=== PATIENT | female | born 1955 | race Caucasian/White ===

== ENCOUNTER 2021-02-02 22:10 | Observation (INO) ==
[2021-02-02] MEDS ORDERED: morphine 4 MG/ML VIAL IV ONE (22:14)
[2021-02-03] MEDS ORDERED: PROPOFOL 200 MG/20 ML VIAL IV ONE ×2 (00:04→13:11)
[2021-02-03] MEDS ORDERED: HYDROmorphone 0.5 MG/0.5 ML SYRINGE IV ONE (00:04)
--- NOTE | 2021-02-03 00:08 | Emergency Department Note ---
HPI General Chief complaint: Extremity Injury, Lower Stated complaint: hip dislocation Time Seen by Provider: 02/02/21 22:16 Source: family and EMS Mode of arrival: EMS Limitations: no limitations History of Present Illness HPI Narrative: Narrative: Patient is a 65-year-old lady who arrives emergency department by ambulance accompanied by her complaining of a left hip dislocation. History of bladder by the patient reviewing medical records and discussion with the physician at the transferring facility. The patient was sitting down this evening when she had sudden onset pain in her left hip and felt a palpable deformity in her hip consistent with prior hip dislocations. She presented to another emergency department. The provider at that location recognize that she did have a hip dislocation but was uncomfortable attempting reduction. He then transferred her to our facility for further evaluation. The patient has had similar problems many times since having her hip replaced in October. She did not suffer any other injuries following the incident. Related Data Home Medications Medication Instructions Recorded Confirmed lisinopril 20 mg PO DAILY 01/12/16 11/02/20 lamotrigine 100 mg PO BID 01/22/18 11/02/20 sumatriptan succinate [Imitrex] 25 mg PO PRN PRN 01/22/18 11/02/20 venlafaxine 75 mg PO DAILY 01/22/18 11/02/20 quetiapine [Seroquel] 200 mg PO HS 01/24/18 11/02/20 clonazepam 0.5 mg PO PRN PRN 10/26/20 11/02/20 gabapentin 900 mg PO TID 10/26/20 11/02/20 Previous Rx's Medication Instructions Recorded hydrocodone-acetaminophen 1 - 2 tab PO Q4-6HP PRN #42 tab 01/24/18 ondansetron 4 mg SL Q4-6HP PRN #14 tab 08/20/18 aspirin 81 mg PO BID #60 tab 11/03/20 meloxicam 7.5 mg PO QD-BID #60 tab 11/03/20 oxycodone 5 mg PO Q4H PRN #60 tab 11/03/20 Allergies Allergy/AdvReac Type Severity Reaction Status Date / Time pregabalin [From Lyrica] Allergy Severe lost blood Verified 10/26/20 13:18 pressure vortioxetine Allergy Intermediate Hives Verified 10/26/20 13:18 [From Brintellix] Review of Systems ROS ROS Narrative: Narrative: All systems ED: reviewed and negative except as stated. Constitutional: Denies fever and chills Cardiovascular: Denies chest pain Respiratory: Denies cough PFSH Narrative Patient History Narrative: Narrative: Medical/Surgical/Family History All Active Problems (Updated 02/03/21 @ 02:21 by Charlie Henson DO) Closed posterior dislocation of left hip (Acute) History of surgery (Acute) History of seizures (Acute) Hypertension (Acute) Depression (Acute) Anxiety disorder (Acute) Chronic pain (Acute) Chronic, continuous use of opioids (Acute) Pain in right knee (Acute) Pain in left knee (Acute) Low Back Pain (Acute) Migraine headache (Acute) Ileus (Acute) Diarrhea (Acute) Shingles rash (Acute) Medical History Anxiety disorder Chronic pain Chronic, continuous use of opioids for nonmalignant pain Depression History of seizures controlled Hypertension Low Back Pain Migraine headache Pain in left knee Pain in right knee Surgical History History of surgery Stellate Ganglion Block, Lt. w/sed 01/08/2019 Stellate Ganglion Block, Left w/sed 12/31/18 Social History Smoking Status: Current every day smoker Exam Narrative Narrative: Narrative: Gen -patient is awake and alert and appears uncomfortable but in no acute distress. HEENT -head is atraumatic. There is no conjunctival pallor or scleral icterus. Mallampati II CV -S1-S2 regular rate and rhythm. Peripheral pulses are palpable. Resp -breathing is nonlabored. Lungs are clear to auscultation bilaterally. There is no cyanosis. GI - Abdomen is soft and nontender to palpation. There is no guarding or rebound tenderness. Derm -skin is warm and dry. MSK -the left lower extremity is shortened and internally rotated. There is exquisite tenderness to palpation over the left hip. Posterior tibial pulse is palpable. Psych -patient has appropriate affect. Neuro -patient answers questions appropriately with fluent speech. Patient moves all present extremities equally. General Limitations: no limitations Course Vital Signs Vital signs: Vital Signs Temperature 99.7 F H 02/02/21 22:10 Pulse Rate 84 02/02/21 22:10 Respiratory Rate 18 02/02/21 22:10 Blood Pressure 181/93 02/02/21 22:10 Pulse Oximetry (%) 95 02/02/21 22:10 Temperature 99.7 F H 02/02/21 22:10 Pulse Rate 79 02/03/21 02:11 Respiratory Rate 13 02/03/21 02:11 Blood Pressure 168/80 02/03/21 02:11 Pulse Oximetry (%) 95 02/03/21 02:11 MDM MDM Narrative Medical decision making narrative: I personally reviewed the patient's x-rays without the assistance of a radiologist. This is 3 views of the left hip. There is a posterior superior dislocation of the left hip arthroplasty present without any visible associated fracture. Patient presents with recurrent left hip dislocation. Reduction was attempted as detailed but was unfortunately unsuccessful. I discussed the patient's history examination diagnostic findings and emergency department course with Dr. Pennington. He discussed OR availability with anesthesia. He would like the patient admitted to his service and he will attempt reduction under general anesthesia in the morning. I discussed the plan with the patient and her and they are agreeable. Procedures Other Procedure: Procedural sedation Please see the attached history and physical for my presedation assessment. Verbal and written consent was obtained from the patient prior to beginning the sedation. Patient was placed on manager monitoring end-tidal capnography and continuous pulse oximetry. She was given multiple doses of IV propofol via slow IV push and achieve the desired level of sedation. The procedure was attempted as detailed separately. Patient did have a few brief periods of apnea that resolved with stimulation. She maintained oxygen saturation greater than 88% throughout the procedure. No complications were observed and the patient recovered to her neurologic baseline following the sedation. Sedation and the procedure were completed by me. Total sedation time was 10 minutes Dislocation reduction Location: Left hip Sedation was provided as detailed above. The patient's hip was placed into flexion and manual traction was applied at the knee. There is also gentle internal and external rotation applied. No palpable reduction was appreciated and the procedure was repeated with alterations in the vectors of applied for several times. Despite multiple attempts, no reduction was achieved. No complications were observed. Discharge Plan Patient/Caregiver Discharge Instructions Pt seen by ROUTE SERVICE MANAGER/PA only: No Clinical Impression: Closed posterior dislocation of left hip Patient Disposition: Xfer As Inpt ([facility]) Condition: Good Follow up with: No,PCP [Primary Care Provider] - Prescriptions: No Action lisinopril 10 MG tablet 20 mg PO DAILY RF: 0 sumatriptan succinate [Imitrex] 25 MG tablet 25 mg PO PRN PRN (Reason: Headache) RF: 0 venlafaxine 150 MG capsule,extended release 24hr 75 mg PO DAILY RF: 0 lamotrigine 100 MG tablet extended release 24hr 100 mg PO BID RF: 0 quetiapine [Seroquel] 50 MG tablet 200 mg PO HS RF: 0 hydrocodone-acetaminophen 1 TAB tablet 1 - 2 tab PO Q4-6HP PRN (Reason: Pain) Qty: 42 RF: 0 ondansetron 4 MG tablet 4 mg SL Q4-6HP PRN (Reason: Nausea And Vomiting) Qty: 14 RF: 0 clonazepam 0.5 mg Tablet 0.5 mg PO PRN PRN (Reason: Anxiety) RF: 0 gabapentin 300 mg Capsule 900 mg PO TID RF: 0 aspirin 81 mg tablet,delayed release (DR/EC) 81 mg PO BID Qty: 60 RF: 0 meloxicam 7.5 mg tablet 7.5 mg PO QD-BID Qty: 60 RF: 0 oxycodone 5 mg tablet 5 mg PO Q4H PRN (Reason: pain) Qty: 60 RF: 0
[2021-02-03] MEDS ORDERED: ONDANSETRON 4 MG/2 ML VIAL IV PRN ×2 (02:14→13:34)
[2021-02-03] MEDS ORDERED: NICOTINE 21 MG PATCH TOPICAL ONE (02:14)
[2021-02-03] MEDS: HYDROmorphone 0.5 MG/0.5 ML SYRINGE IV PRN ×5 (02:34→11:54)
--- NOTE | 2021-02-03 03:48 | XRay Report ---
CLINICAL INFORMATION: Trauma COMPARISON: None. FINDINGS: Complete dislocation left hip prostheses with the femoral head in the superior periacetabular soft tissues. The prosthetic acetabulum is more laterally canted than typically seen. No fracture identified. Soft tissue swelling over the hip as expected IMPRESSION: Complete dislocation - left total hip prostheses Interpreted and Authenticated by: Xavier Ryan 02/03/21
[2021-02-03] MEDS: 0.9 % SODIUM CHLORIDE 1,000 ML IV SCH ×3 (03:51→14:12)
[2021-02-03] MEDS ORDERED: clonazePAM 0.5 MG TABLET PO PRN ×2 (10:39→13:36)
[2021-02-03] MEDS ORDERED: LISINOPRIL 20 MG TABLET PO SCH (11:08)
[2021-02-03] MEDS ORDERED: MIDAZOLAM 2 MG/2 ML VIAL ONE (13:11)
[2021-02-03] MEDS ORDERED: KETAMINE 50 MG/ML ML ONE (13:11)
[2021-02-03] MEDS ORDERED: HYDROmorphone 1 MG/ML SYRINGE IV PRN (13:34)
[2021-02-03] MEDS ORDERED: HYDROCODONE/APAP 7.5/325MG TABLET PO PRN (13:34)
--- NOTE | 2021-02-03 13:34 | Brief Operative Note ---
Brief Operative Note Date of procedure: 02/03/21 Pre-op diagnosis: Left hip posterior dislocation Post-op diagnosis: same Procedure: Left hip posterior dislocation Grafts/Implants: Yes Anesthesia: GETA Complications: none Surgeon: Domenic Fatima Estimated blood loss (cc): 0 Tourniquet Time (Minutes): 0 Specimens Removed/Pathology: none sent Condition: stable Disposition: PACU
[2021-02-03] MEDS ORDERED: SUMAtriptan SUCCINATE 25 MG TABLET PO PRN (13:36)
[2021-02-03] MEDS ORDERED: HYDROcodone/APAP 10/325MG TABLET PO PRN (13:36)
[2021-02-03] MEDS ORDERED: ONDANSETRON 4 MG ODT TABLET SL PRN (13:40)
[2021-02-03] MEDS ORDERED: LACTATED RINGERS 1,000 ML IV SCH (13:45)
[2021-02-03] MEDS ORDERED: 0.9 % SODIUM CHLORIDE 10 ML SYRINGE IV SCH (14:00)
--- NOTE | 2021-02-03 14:01 | Consultation ---
DATE OF CONSULTATION: 02/03/2021 HISTORY OF PRESENT ILLNESS: This is a 65-year-old seen in the emergency room with a chief complaint of left hip pain after a dislocation. She was seen in the emergency room and then transferred to [facility] for reduction. The ER physician here has tried unsuccessfully under sedation to reduce the hip. I have been consulted by Dr. Henson to reduce the hip. For that reason, she is admitted to the hospital for me to reduce it in the OR. PAST MEDICAL HISTORY: She has had a total hip by Dr. Landry that was done in October. This is her fifth dislocation. She has agreed to undergo surgery. She has been wearing the knee immobilizer, but her knee immobilizer is not on at this time. She has otherwise been mobile in spite of the hip. PAST SURGICAL HISTORY: Left total hip arthroplasty as noted 11/13/2020. MEDICATIONS: 1. Gabapentin. 2. Lisinopril. 3. Antianxiety medication. PHYSICAL EXAMINATION: GENERAL: Very pleasant 65-year-old, in some pain. Alert and oriented. She is 5 feet, 98 pounds. CHEST: Lungs are clear to auscultation. CARDIOVASCULAR: Regular rate and rhythm. No murmurs, rubs, or gallops. EXTREMITIES: Left hip has an anterior scar well healed with shortening of the left leg when compared to the right. She is able to move her toes, but she has weakness with extension. She has good capillary refill into both feet. She is unable to move the leg. It is shortened and internally rotated several inches. IMAGING: X-rays confirmed a superior posterior dislocation that has been unresponsive to the prior reduction. PLAN: She understands the risks and benefits and agrees to proceed with the reduction, understanding she probably will need a revision surgery to stabilize the hip. RBH:cecilia Job ID: [id number] Doc ID: [id number] Domenic Fatima MD
--- NOTE | 2021-02-03 14:05 | XRay Report ---
CLINICAL INFORMATION: Post Op COMPARISON: Reduction film 02/02/2021 2208 hours FINDINGS: Following reduction, the left total hip prostheses is now anatomically aligned. A 8 mm triangular-shaped calcification, superior to the left hip capsule, may represent an avulsed fracture fragment of the acetabulum. Severe right hip degeneration noted there is mild degeneration in the SI joints IMPRESSION: Left total hip prostheses anatomically aligned following reduction. Small avulsion fracture off the lateral acetabular Severe right hip degeneration Interpreted and Authenticated by: Xavier Ryan 02/03/21
--- NOTE | 2021-02-03 14:07 | Operative Note ---
DATE OF OPERATION: 02/03/2021 PREOPERATIVE DIAGNOSIS: Left hip posterior dislocation. POSTOPERATIVE DIAGNOSES: Left hip posterior dislocation. PROCEDURE: Left hip closed reduction in the operative suite in the recovery area. SURGEON: Domenic Fatima M.D. ELECTROMEDICAL EQUIPMENT TECHNICIAN: Renita Garvin CRNA. COMPLICATIONS: No complications. ESTIMATED BLOOD LOSS: No blood loss. DISPOSITION: Back to PACU. DESCRIPTION OF PROCEDURE: The patient was brought to the recovery area. The leg was signed and consented for. She understood the risks and benefits. She had failed one prior reduction earlier today in the emergency room. Renita Garvin, the physical testing supervisor, then sedated the patient. Once asleep, I then had the nurse place countertraction on her pelvis. I then performed a closed reduction maneuver, slightly internally, the leg given traction and was able to reduce the hip. This reproduced equal leg length and rotation. X-rays were ordered to confirm this reduction. The patient tolerated this well without complication. A knee immobilizer was placed. RBH:cecilia Job ID: [id number] Doc ID: [id number] Domenic Fatima MD
[2021-02-03] MEDS ORDERED: GABAPENTIN 300 MG CAPSULE PO SCH (15:00)
[2021-02-03] MEDS ORDERED: lamoTRIgine 100 MG TABLET PO SCH ×2 (21:00)
[2021-02-03] MEDS ORDERED: QUEtiapine 100 MG TABLET PO SCH (21:00)
[2021-02-04] MEDS ORDERED: LISINOPRIL 10 MG TABLET PO SCH (09:00)
[2021-02-04] MEDS ORDERED: LISINOPRIL 20 MG TABLET PO SCH (09:00)
[2021-02-04] MEDS ORDERED: VENLAFAXINE 75 MG CAP.XL.24H PO SCH (09:00)
[2021-02-04] MEDS ORDERED: PNEUMOCOCCAL 23-VAL P-SAC VAC 0.5 ML SYRINGE IM ONE (10:00)
== END 2021-02-03 15:50 | disposition home or self-care (01) ==
LOC: MEDSUR 22:10 → ED 22:10 → MEDSUR 02-03 02:51
PROVIDERS: ADMIT Orthopaedic Surgery; ATTEND Orthopaedic Surgery

== ENCOUNTER 2023-04-10 03:05 | Observation (INO) ==
[2023-04-10] MEDS ORDERED: NALOXONE HCL 0.4 MG/ML VIAL IV PRN ×2 (03:19→06:20)
[2023-04-10] MEDS ORDERED: ONDANSETRON 4 MG/2 ML VIAL IV PRN ×4 (03:19→06:42)
--- NOTE | 2023-04-10 03:24 | Emergency Department Note ---
Lower Extremity Injury HPI General Chief Complaint: Extremity Injury, Lower Stated Complaint: right hip dislocated Time Seen by Provider: 04/10/23 03:18 Source: patient, family and EMS Mode of arrival: ambulatory Limitations: physical limitation History of Present Illness HPI Narrative: Narrative: Patient presents to the ED after being transferred from outside facility for dislocated right hip. Patient does have surgery to replace her right hip [address] Penning[address]. At the outside facility they attempted to reduce hip but were unsuccessful. They spoke with Dr. Pennington on the phone who advised and transferred to our facility. We accept the patient as a transfer. Patient currently rates her pain 9/10 on evaluation. She states that she was just in the chair went to shift her hips and came out of socket with excruciating pain. Patient denies loss of sensation lower extremity, loss of motor function lower extremity although it does hurt to move, nausea, vomiting, fever, chills, recent falls. Patient denies any other alleviating or aggravating factors. Related Data Home Medications Medication Instructions Recorded Confirmed sumatriptan succinate 25 mg tablet 100 mg PO PRN PRN Headache 01/22/18 03/25/23 (Imitrex) quetiapine 50 mg tablet (Seroquel) 200 mg PO HS 01/24/18 03/25/23 lamotrigine 100 mg tablet 100 mg PO BID 02/03/21 03/25/23 lisinopril 20 mg tablet 20 mg PO QDAY 08/28/21 03/25/23 amlodipine 10 mg tablet 20 mg PO QDAY 09/26/22 03/25/23 lamotrigine 25 mg tablet 50 mg PO HS 09/26/22 03/25/23 Previous Rx's Medication Instructions Recorded fluticasone fur. 200 mcg-umeclid 1 inh inhalation QDAY #60 ea 02/05/23 62.5 mcg-vilant 25 mcg inhalat.powder (Trelegy Ellipta) gabapentin 300 mg capsule 300 mg PO TID #90 caps 03/21/23 gabapentin 600 mg tablet 600 mg PO TID #90 tabs 03/21/23 aspirin 81 mg tablet,delayed 81 mg PO BID #60 tabs 03/25/23 release (Ecotrin Low Strength) docusate sodium 100 mg capsule 100 mg PO BID #60 caps 03/25/23 hydrocodone 10 mg-acetaminophen 1 - 2 tab PO Q4H PRN pain #75 tabs 03/25/23 325 mg tablet ondansetron 4 mg disintegrating 4 mg PO Q4-6HP PRN Nausea And 04/01/23 tablet Vomiting #30 tabs meloxicam 7.5 mg tablet 15 mg PO QDAY #60 tabs 04/03/23 Allergies Allergy/AdvReac Type Severity Reaction Status Date / Time vortioxetine Allergy Mild Hives Verified 04/10/23 03:11 [From Brintellix] pregabalin [From Lyrica] AdvReac Intermediate lost blood Verified 04/10/23 03:11 pressure Review of Systems ROS ROS Narrative: Narrative: All systems ED: reviewed and negative except as stated. [facility] [place] Narrative Patient History Narrative: Narrative: Medical/Surgical/Family History All Active Problems (Updated 04/10/23 @ 03:24 by Jean Queen DO) Dislocation of right hip (Acute) COPD (chronic obstructive pulmonary disease) (Chronic) Carotid artery stenosis (Chronic) Shingles rash (Chronic) Diarrhea (Chronic) Ileus (Chronic) Tobacco abuse counseling (Chronic) Hypertension (Chronic) Aneurysm of external iliac artery (Chronic) Chest pain (Chronic) Abdominal pain (Chronic) Closed posterior dislocation of left hip (Chronic) Tobacco abuse (Chronic) Cervicalgia (Chronic) Degeneration of cervical intervertebral disc (Chronic) History of surgery (Chronic) History of seizures (Chronic) Hypertension (Chronic) Depression (Chronic) Anxiety disorder (Chronic) Chronic pain (Chronic) Chronic, continuous use of opioids (Chronic) Pain in right knee (Chronic) Pain in left knee (Chronic) Migraine headache (Chronic) Medical History Abdominal pain Aneurysm of external iliac artery Anxiety disorder Carotid artery stenosis Cervicalgia Chest pain Chronic pain Chronic, continuous use of opioids for nonmalignant pain Closed posterior dislocation of left hip COPD (chronic obstructive pulmonary disease) Degeneration of cervical intervertebral disc Depression Diarrhea History of seizures controlled Hypertension Ileus Low Back Pain Migraine headache Pain in left knee Pain in right knee Shingles rash Tobacco abuse Tobacco abuse counseling Surgical History History of bilateral knee replacement (~2010) History of hip surgery (~2020) Two surgeries on left hip History of right shoulder replacement (~2019) History of surgery Stellate Ganglion Block, Lt. w/sed 01/08/2019 Stellate Ganglion Block, Left w/sed 12/31/18 History of surgery on right wrist (~2017) Family History Father Dementia Mother Dementia Social History Smoking Status: Current every day smoker Alcohol Intake Frequency: does not drink Substance Use: does not use Exam Narrative Narrative: Narrative: General Limitations: physical limitation General appearance: Absent in distress Respiratory Respiratory: Present normal lung sounds bilaterally; Absent respiratory distress Cardiovascular Cardiovascular: Present regular rate and normal rhythm Adbominal Abdominal: Present soft; Absent tenderness Extremities Extremities: Present normal capillary refill Expanded Lower Extremity Hip/Pelvis: Present tenderness, deformity and shortening; Absent full ROM Neurological Neurological: Present alert and oriented X3 Psychiatric Psychiatric: Present normal affect and normal mood Skin Skin: Present warm (WNL) and intact Course Course Course Narrative: Patient was evaluated after being transferred for [facility] facility for right hip dislocation. I reviewed the images that were taken at the outside facility which revealed a right hip dislocation. Patient given IV Dilaudid as needed for discomfort. She is also given IV Zofran as needed for discomfort. Case was discussed with on-call surgeon, Dr. Pennington who recommend the patient be admitted under observation he will take her to the OR in the morning for reduction. Labs were obtained and were unremarkable. EKG was unremarkable. Plan of care was discussed with patient she expressed verbal understanding and agreement of plan. Vital Signs Vital signs: Vital Signs Temperature 99.1 F H 04/10/23 03:07 Pulse Rate 87 04/10/23 03:07 Respiratory Rate 17 04/10/23 03:07 Blood Pressure 153/70 04/10/23 03:07 Pulse Oximetry (%) 98 04/10/23 03:07 Oxygen Delivery Method Room Air 04/10/23 03:07 Temperature 99.1 F H 04/10/23 03:07 Pulse Rate 79 04/10/23 03:46 Respiratory Rate 17 04/10/23 03:07 Blood Pressure 151/80 04/10/23 03:46 Pulse Oximetry (%) 99 04/10/23 03:46 Oxygen Delivery Method Room Air 04/10/23 03:07 [facility] MDM Narrative Medical decision making narrative: Narrative: Differential Diagnosis Differential Diagnosis: Right hip fracture Medical Records Medical records reviewed: Yes I reviewed the patient's medical records. Lab Data Lab results reviewed: Yes I reviewed the patient's lab results. 04/10/23 03:30 04/10/23 03:30 Radiology Data Radiology results reviewed: Yes I reviewed the patient's radiology results. Radiology results narrative: X-rays of the right hip obtained with image reviewed myself which reveals right hip fracture EKG Data EKG #1: EKG attestation: Yes I reviewed and interpreted this EKG. EKG shows normal: sinus rhythm Rate: normal Rhythm: NSR [place]/QRS: normal Heart block present: None ST segment elevation in: None ST segment depression in: None QTc: normal QRS morphology: Present normal Interpretation: no acute changes Core Measures AMI Core Measures Followed: Yes Discharge Plan Patient/Caregiver Discharge Instructions Pt seen by MUSIC PROMOTER/PA only: No Clinical Impression: Dislocation of right hip Qualifiers: Encounter type: initial encounter Qualified Code(s): S73.004A - Unspecified dislocation of right hip, initial encounter Patient Disposition: Xfer As Outpt/Obs ([facility]) Condition: Fair Follow up with: Armando Hampton MD [Primary Care Provider] - Prescriptions: No Action gabapentin 300 mg capsule 300 mg PO TID Qty: 90 5RF gabapentin 600 mg tablet 600 mg PO TID Qty: 90 5RF Rx Instructions: Take with 300mg to make 900mg 3x/day ondansetron 4 mg tablet,disintegrating 4 mg PO Q4-6HP PRN (Reason: Nausea And Vomiting) Qty: 30 0RF meloxicam 7.5 mg tablet 15 mg PO QDAY Qty: 60 2RF Trelegy Ellipta 200-62.5-25 mcg blister with device 1 inh inhalation QDAY Qty: 60 2RF lamotrigine 25 mg tablet 50 mg PO HS Rx Instructions: Taken in conjunction with HS dose of 100 mg for total of 150 mg amlodipine 10 mg tablet 20 mg PO QDAY sumatriptan succinate [Imitrex] 25 MG tablet 100 mg PO PRN PRN (Reason: Headache) quetiapine [Seroquel] 50 MG tablet 200 mg PO HS lamotrigine 100 mg tablet 100 mg PO BID lisinopril 20 mg Tablet 20 mg PO QDAY hydrocodone-acetaminophen 10-325 mg tablet 1 - 2 tab PO Q4H PRN (Reason: pain) Qty: 75 0RF aspirin [Ecotrin Low Strength] 81 mg tablet,delayed release (DR/EC) 81 mg PO BID Qty: 60 0RF docusate sodium 100 mg capsule 100 mg PO BID Qty: 60 0RF
[2023-04-10] MEDS ORDERED: 0.9 % SODIUM CHLORIDE 1,000 ML IV SCH (03:30)
[2023-04-10] MEDS: HYDROmorphone 1 MG/ML SYRINGE IV PRN ×2 (03:36→05:03)
[2023-04-10 04:43] LABS: Basophils # (Auto) 0.04 K/mcL (0.00-0.30); Basophils % (Auto) 0.5 % (0.0-2.0); Eosinophils # (Auto) 0.08 K/mcL (0.00-0.70); Eosinophils % (Auto) 1.1 % (0.0-7.0); Hematocrit 33.5 % (34.1-44.9); Hemoglobin 10.7 g/dL (11.2-15.7); Lymphocytes # (Auto) 0.83 K/mcL (1.50-4.80); Lymphocytes % (Auto) 10.9 % (15.5-49.0); Mean Cell Volume 103.4 fL (80.0-100.0); Mean Corpuscular HGB Conc 31.9 g/dL (31.0-36.0); Mean Platelet Volume 9.2 fL (8.8-12.5); Monocytes # (Auto) 0.38 K/mcL (0.10-0.90); Platelet Count 392 K/mcL (140-440); RBC 3.24 M/mcL (3.59-5.38); Red Cell Distribution Width 14.6 % (11.5-14.5); WBC 7.6 K/mcL (4.5-11.0)
[2023-04-10 04:45] LABS: Appearance,Urine CLEAR (Clear); Bilirubin,Urine Negative (Negative); Color,Urine YELLOW; Culture Indicated,Urine No; Glucose,Urine (UA) Negative (Negative); Ketones,Urine Negative (Negative); Leukocyte Esterase,Urine Negative /uL (Negative); Nitrate,Urine Negative (Negative); Protein,Urine Negative (Negative); Specific Gravity,Urine 1.018 (1.000-1.035); Urine Blood Negative (Negative); Urobilinogen,Urine Negative
[2023-04-10 04:52] LABS: INR 0.9 (0.9-1.1); Prothrombin Time 12.5 sec (11.9-14.5)
[2023-04-10 04:54] LABS: ALT/SGPT 8 U/L (<40); AST/SGOT 14 U/L (<32); Albumin 3.5 gm/dL (3.2-5.2); Albumin/Globulin Ratio 1.1 (1.0-2.3); Alkaline Phosphatase 117 U/L (39-117); Bilirubin,Total 0.3 mg/dL (0.1-1.0); Blood Urea Nitrogen 22 mg/dL (8-23); Calcium 8.9 mg/dL (8.6-10.4); Carbon Dioxide 25 mmol/L (22-30); Chloride 100 mmol/L (96-108); Globulin 3.1 gm/dL (2.2-3.7); Glomerular Filtration Rate 76; Glucose 122 mg/dL (70-105)
[2023-04-10] MEDS ORDERED: HYDROmorphone 0.5 MG/0.5 ML SYRINGE IV PRN ×2 (05:00→06:20)
[2023-04-10] MEDS ORDERED: SUGAMMADEX SODIUM 200 MG/2 ML VIAL IV ONE (06:08)
[2023-04-10] MEDS ORDERED: ONDANSETRON 4 MG/2 ML VIAL ONE (06:08)
[2023-04-10] MEDS ORDERED: PROPOFOL 200 MG/20 ML VIAL IV ONE (06:08)
[2023-04-10] MEDS ORDERED: ROCURONIUM 10 MG/ML ML IV ONE (06:08)
[2023-04-10] MEDS ORDERED: fentaNYL 100 MCG/2 ML VIAL IV ONE (06:08)
[2023-04-10] MEDS ORDERED: METHOCARBAMOL 1,000 MG/10 ML VIAL IV PRN (06:20)
[2023-04-10] MEDS ORDERED: IPRATROPIUM/ALBUTEROL 3 ML AMPUL.NEB NEB PRN (06:20)
[2023-04-10] MEDS ORDERED: fentaNYL 100 MCG/2 ML VIAL IV PRN (06:20)
[2023-04-10] MEDS ORDERED: LABETALOL 5 MG/ML ML IV PRN (06:20)
[2023-04-10] MEDS ORDERED: ACETAMINOPHEN 1,000 MG/100 ML BAG IV ONE (06:20)
[2023-04-10] MEDS ORDERED: HYDROcodone/APAP 10/325MG TABLET PO PRN ×2 (06:32→06:42)
--- NOTE | 2023-04-10 06:38 | Brief Operative Note ---
Brief Operative Note Date of procedure: 04/10/23 Pre-op diagnosis: Right hhip dislocation Post-op diagnosis: same Procedure: right hip closed redduction under aneasthesia Grafts/Implants: Yes Anesthesia: GETA Findings: posterior hip dislocation Complications: none Surgeon: Domenic Fatima Estimated blood loss (cc): 0 Tourniquet Time (Minutes): 0 Specimens Removed/Pathology: none sent Condition: stable Disposition: PACU
[2023-04-10] MEDS ORDERED: POLYETHYLENE GLYCOL 3350 17 GM PACKET PO PRN (06:42)
[2023-04-10] MEDS ORDERED: FLEETS ADULT ENEMA PR PRN (06:42)
[2023-04-10] MEDS ORDERED: BISACODYL 10 MG SUPP.RECT PR PRN (06:42)
[2023-04-10] MEDS ORDERED: BENZOCAINE/MENTHOL 1 LOZENGE PO PRN (06:42)
[2023-04-10] MEDS ORDERED: TEMAZEPAM 15 MG CAPSULE PO PRN (06:42)
[2023-04-10] MEDS ORDERED: HYDROmorphone 1 MG/ML SYRINGE IV PRN (06:42)
[2023-04-10] MEDS ORDERED: ACETAMINOPHEN 325 MG TABLET PO PRN (06:42)
[2023-04-10] MEDS ORDERED: MAGNESIUM HYDROXIDE 30 ML ORAL.SUSP PO PRN (06:42)
[2023-04-10] MEDS ORDERED: 0.45 % SODIUM CHLORIDE 1,000 ML IV SCH (06:45)
[2023-04-10] MEDS: HYDROcodone/APAP 10/325MG TABLET PO PRN ×2 (07:22→10:48)
--- NOTE | 2023-04-10 08:25 | Operative Note ---
DATE OF OPERATION: 04/10/2023 PREOPERATIVE DIAGNOSIS: Right hip posterior dislocation. POSTOPERATIVE DIAGNOSIS: Right hip posterior dislocation. PROCEDURE: Right total hip arthroplasty closed reduction under anesthesia. SURGEON: Domenic Fatima M.D. ESTIMATED BLOOD LOSS: None. COMPLICATIONS: None. IMPLANTS: No implants were placed. DISPOSITION: To PACU. DESCRIPTION OF PROCEDURE: The patient was brought to the operating room, put to sleep with general LMA anesthesia and placed on the fracture table because the ER physicians were unable to reduce the hip after considerable force. She was placed on the fracture table for traction reasons. We applied linear traction, rotating the hip internally initially and then as we extended and pulled traction, we were able to slightly externally rotate the hip and felt a reduction. We used C-arm to confirm the placement and position of the hip. We placed some lateral pressure and this helped to reduce the hip. This was reduced. We took images, AP and lateral, and then saved images and then took the patient out of traction and placed the patient back on the operating table. There was no incisions made. The patient tolerated this well. There were no complications. RBH:cecilia Job ID: [id number] Doc ID: [id number] Domenic Fatima MD
--- NOTE | 2023-04-10 08:49 | Consultation ---
DATE OF CONSULTATION: 04/10/2023 HISTORY OF PRESENT ILLNESS: This is a very pleasant, 67-year-old who had surgery on 03/25/2023. She sustained a hip dislocation after her dog ran past and caused the hip to internally rotate and for her to fall. She had immediate pain, swelling and deformity. She was seen in the [facility] where an attempt to reduce the hip was attempted, but unsuccessful secondary to the tightness of the hip. Multiple attempts and adequate anesthesia was provided. For this reason, she was transferred here to [facility]. ALLERGIES: 1. LYRICA. 2. VORTIOXETINE WHICH CAUSES HIVES. PAST MEDICAL HISTORY: She has had multiple problems, COPD, hip dislocation on her right side and prior on her left side. She had shingles, diarrhea, ileus, tobacco use, hypertension, aneurysm, chest pain, neck pain, and anxiety. PHYSICAL EXAMINATION: VITALS: Blood pressure 154/82, pulse 81, respiratory rate is 16, temperature 98.1, O2 sat 100% on binasal cannula 1.5%. GENERAL: Very pleasant, elderly female who is able to give an adequate history, in quite a bit of pain. LUNGS: Her lungs have tracheal and expiratory wheezes. She has no respiratory shortness of breath, though she states that she uses oxygen and she is on oxygen. HEART: Her heart is somewhat tachycardic, about 90 beats per minute, but regular. ABDOMEN: Her abdomen is soft and nontender. MUSCULOSKELETAL: She is thin and frail and the right hip is shortened and internally rotated severely, though her foot is pink and warm. Incision appears well healed. IMAGING: X-ray of the right hip show a right hip superior posterior dislocation. PLAN: Plan is to perform a closed reduction on the operative table or the fracture table to apply adequate traction and use the arm to guide the reduction. The patient agrees to proceed with this plan, understanding the risk of fracture, but the benefit far outweighs these risks. She understands this and agreed to proceed. [facility]H:cecilia Job ID: [id number] Doc ID: [id number] Domenic Fatima MD
[2023-04-10] MEDS ORDERED: amLODIPine 10 MG TABLET PO SCH (09:00)
[2023-04-10] MEDS ORDERED: MELOXICAM 7.5 MG TABLET PO SCH (09:00)
[2023-04-10] MEDS ORDERED: ASPIRIN 81 MG TAB.CHEW CHEWED SCH (09:00)
[2023-04-10] MEDS ORDERED: DOCUSATE SODIUM 100 MG CAPSULE PO SCH ×2 (09:00)
[2023-04-10] MEDS ORDERED: ASPIRIN 325 MG ENTERIC COATED TABLET PO SCH (09:00)
[2023-04-10] MEDS ORDERED: LISINOPRIL 20 MG TABLET PO SCH (09:00)
[2023-04-10] MEDS ORDERED: NON FORMULARY MEDICATION 1 DOSE MISCELL (Fluticasone-Umeclidin-Vilanter [Trelegy Ellipta] INHALATION SCH (09:00)
[2023-04-10] MEDS ORDERED: NON FORMULARY MEDICATION 1 DOSE MISCELL (Aspirin [Ecotrin Low Strength] 81 mg tablet,delay PO SCH (09:00)
[2023-04-10] MEDS ORDERED: GABAPENTIN 300 MG CAPSULE PO SCH ×2 (09:00→15:00)
[2023-04-10] MEDS ORDERED: NON FORMULARY MEDICATION 1 DOSE MISCELL (Gabapentin 600 mg tablet) PO SCH (09:00)
[2023-04-10] MEDS ORDERED: lamoTRIgine 100 MG TABLET PO SCH (09:00)
--- NOTE | 2023-04-10 09:17 | XRay Report ---
HISTORY: FINDINGS: IMPRESSION: 0.1 minutes of fluoroscopy time was used. Interpreted and Authenticated by: Isra Arana 04/10/23
--- NOTE | 2023-04-10 09:28 | XRay Report ---
HISTORY: Post reduction of previously dislocated right hip prosthesis FINDINGS: The prosthetic right femoral head is now normally centered within the acetabular cup. There is no fracture. The orientation of the acetabular cup appears normal. Left hip prosthesis is normal. There are clips in the right groin. There has been prior fusion in the lumbar spine. IMPRESSION: The alignment postreduction of previously dislocated right hip prosthesis Interpreted and Authenticated by: Isra Arana 04/10/23
[2023-04-10] MEDS ORDERED: ONDANSETRON 4 MG ODT TABLET SL PRN (09:43)
[2023-04-10] MEDS ORDERED: SUMAtriptan SUCCINATE 50 MG TABLET PO PRN (09:45)
[2023-04-10] MEDS ORDERED: 0.9 % SODIUM CHLORIDE 10 ML SYRINGE IV SCH (14:00)
[2023-04-10] MEDS ORDERED: SENNOSIDES 1 TABLET PO SCH (21:00)
[2023-04-10] MEDS ORDERED: QUEtiapine 100 MG TABLET PO SCH (21:00)
[2023-04-10] MEDS ORDERED: lamoTRIgine 25 MG TABLET PO SCH (21:00)
[2023-04-11] MEDS ORDERED: Fluticasone-Umeclidin-Vilanter [Trelegy Ellipta] Inhaler INH SCH (09:00)
--- NOTE | 2023-04-11 17:52 | EKG ---
[facility] Test Date: 2023-04-10 Pat Name: Keerthi Pizano Department: ED Room: Gender: Female Supply Chain Director: : 1955 Requested By: Jean Queen Order Number: [id number] Reading MD: Xavier Arana M.D. Measurements Intervals [place] Rate: 83 P: 77 TX: 136 QRS: 75 QRSD: 89 T: 74 QT: 382 QTc: 449 Interpretive Statements Sinus rhythm Consider left ventricular hypertrophy Electronically Signed On 04-11-2023 17:52:27 PDT by Xavier Arana M.D. /[id number]
== END 2023-04-10 10:50 | disposition home or self-care (01) ==
LOC: ED 03:05 → MEDSUR 03:05
PROVIDERS: ADMIT Orthopaedic Surgery; ATTEND Orthopaedic Surgery